=== PATIENT | male | born 2005 | race Caucasian/White ===

== ENCOUNTER 2024-01-28 19:51 | Observation (INO) | payer BC, SELFPAY ==
[2024-01-28 13:45] VITALS: BP 134/75
[2024-01-28] MEDS: OMNIPAQUE 50 ML PO (14:59)
[2024-01-28 15:10] LABS: Urine Albumin Negative (Neg - Trace); Urine Bilirubin Negative (Negative); Urine Character Clear (Clear); Urine Color Yellow; Urine Glucose Negative (Negative); Urine Ketone Negative (Negative); Urine Leukocyte Negative (Negative); Urine Nitrite Negative (Negative); Urine Occult Blood Negative (Negative); Urine Urobilinogen Negative (Neg - 1+)
[2024-01-28 15:12] LABS: % Basophils 0.6 % (0-2); % Eosinophils 0.3 % (0-6); % Immature Granulocytes 0.4 % (0-0.5); % Lymphocytes 10.2 % (20.5-51.1); % Neutrophils 79.5 % (42.2-75.2); Absolute Basophils 0.1 10^3/uL (0-0.2); Absolute Immature Granulocytes 0.1 10^3/uL (0-0.05); Absolute Lymphocytes 1.3 10^3/uL (1.2-3.4); Absolute Monocytes 1.2 10^3/uL (0.1-0.6); Absolute Neutrophils 10.4 10^3/uL (1.4-6.5); Hematocrit 40.2 % (39.0-52.0); Mean Corp Hgb Conc. 34.8 g/dL (33.0-37.0); Mean Corpuscular Hgb 28.6 pg (27.0-31.0); Mean Corpuscular Volume 82.2 fL (80.0-94.0); Mean Platelet Volume 9.8 fL (7.4-10.4); Nucleated Red Blood Cells % 0 % (-); Platelet Count 320 10^3/uL (130-400); Red Blood Cell Count 4.89 10^6/uL (4.70-6.10); Red Cell Dist. Width 12.2 % (11.5-14.5)
[2024-01-28 15:23] LABS: ALT (SGPT) 14 U/L (0-50); AST (SGOT) 20 U/L (17-59); Albumin 4.5 g/dl (3.5-5.0); Alkaline Phosphatase 92 U/L (38-126); Blood Urea Nitrogen 22 mg/dl (9-20); Calcium 10.2 mg/dl (8.4-10.2); Carbon Dioxide 29 mmol/L (22-30); Chloride 98 mmol/L (98-107); Glucose 96 mg/dl (70-99); Potassium 3.9 mmol/L (3.5-5.1); Sodium 136 mmol/L (135-145); Total Bilirubin 0.6 mg/dl (0.2-1.3); Total Protein 7.7 g/dl (6.3-8.2); eGFR > 60.00
[2024-01-28 15:25] LABS: Lipase 36 U/L (23-300)
[2024-01-28 18:32] VITALS: BP 116/74
[2024-01-28] MEDS: ZOSYN 100 IV (18:38)
[2024-01-28] MEDS: NSS 1000 IV ×2 (18:40→21:39)
--- NOTE | 2024-01-28 18:41 | PHANOTE ---
Med Rec Note:
Per pt's mother, she had some dosage of Macrobid left over, Pt took 4 doses since Thursday, last dose this AM.
[2024-01-28] MEDS: TORADOL 15 MG IV (18:59)
[2024-01-28 19:18] VITALS: BP 111/69
--- NOTE | 2024-01-28 19:22 | ED.GENMED ---
History of Present Illness
General
Chief Complaint: Abdominal Pain
Source: patient and family
Exam Limitations: none
Time Seen by Provider: 01/28/24 14:35
Nursing documentation reviewed up to this point in time: agreed with
Travel History
Have you had any contact with someone who has COVID-19?: No
Do you have any symptoms of coronavirus? Fever > 100 degrees, chills, cough, shortness of breath, sore throat, loss of taste or smell, muscle aches, or headache?: No
History of Present Illness
History of Present Illness:
18-year-old male without significant past medical history presenting to the emergency department with initially intermittent right lower quadrant abdominal pain but progressive over the past 2 days or so associated nausea no significant change in
bowel movements. Had a fever throughout the day today. No history of surgeries
Review of Systems
Review of Systems
Allergies reviewed?: Yes
All Other Systems: ROS reviewed and negative except as documented in HPI and ROS
Phy Exam
Physical Exam
Physical Exam:
GENERAL: Alert , in no apparent distress
EYE: pupils equal and reactive
NECK: Supple, no significant adenopathy.
ENT: o/p clr, mmm.
CARDIAC: Regular rate and rhythm .
LUNGS: Clear breath sounds bilaterally, no acute respiratory distress, no wheezes/rales/rhonchi
ABDOMEN: Tenderness throughout the lower abdomen maximal to the right lower quadrant
NEUROLOGICAL: Alert and oriented, no focal neuro deficits
SKIN: Warm and dry, skin intact.
MUSCULOSKELETAL: No edema, well perfused.
PSYCH: Normal and appropriate interaction.
Course
Orders/Labs/Results
Orders:
Orders
01/28/24 14:44
Iohexol [Omnipaque] See Protocol PO NOW STA
01/28/24 14:45
CT Abd/pel W Iv And Oral Contr Urgent
Comment:
Reason For Exam: rlq pain
01/28/24 15:00
Comprehensive Metabolic Panel Urgent
Lipase Urgent
01/28/24 15:01
Complete Blood Count/With Diff Urgent
Urinalysis Reflex To Culture Urgent
Date Specimen was Collected: 01/28/24
Time Specimen was Collected: 14:49
Chlamydia/GC by PCR Urgent
DELMAR Source: Urine
Specimen Description:
Source:: URINE
Date Specimen was Collected: 01/28/24
Time Specimen was Collected: 14:49
01/28/24 18:31
Piperacillin/Tazo 4.5 Gram [Zosyn] 4.5 gram in 100 ml IV NOW
01/28/24 18:37
0.9% Sodium Chloride 1000 ml [Nss] 1,000 ml IV BOLUS
01/28/24 18:43
Ketorolac [Toradol] 15 mg IV NOW STA
Abnormal Lab Results
01/28/24 01/28/24
15:00 15:01
WBC 13.0 H 10^3/uL
(4.8-10.8)
Abs Immat Gran (auto) 0.1 H 10^3/uL
(0-0.05)
Absolute Neuts (auto) 10.4 H 10^3/uL
(1.4-6.5)
Absolute Monos (auto) 1.2 H 10^3/uL
(0.1-0.6)
Neutrophils % 79.5 H %
(42.2-75.2)
Lymphocytes % 10.2 L %
(20.5-51.1)
BUN 22 H mg/dl
(9-20)
01/28/24 15:01
01/28/24 15:00
Vital Signs
Initial and Last Documented VS:
Initial Vital Signs
Temp Pulse Resp BP Pulse Ox
100.3 F 107 18 134/75 99
01/28/24 13:45 01/28/24 13:45 01/28/24 13:45 01/28/24 13:45 01/28/24 13:45
Last Documented Vital Signs
Temp Pulse Resp BP Pulse Ox
102.2 F H 96 16 111/69 99
01/28/24 18:32 01/28/24 19:18 01/28/24 19:18 01/28/24 19:18 01/28/24 19:18
MDM/Problems Addressed
MDM/Problems Addressed:
18-year-old male presenting to the emergency department with concerns of worsening right lower quad abdominal pain. Initially with borderline temperature here slightly elevated heart rate was given fluids white count 13.[address]
scan showing perforated appendicitis. Case discussed with surgery started on antibiotics and otherwise admitted for IR drain tomorrow morning stable throughout ER stay.
*Critical Care Note
Total Time (30-74mins, 75-104mins- exclusive of procedures): Not Applicable
ED Attending Note
-
Portions of this chart may have been created with voice recognition software.� Occasional wrong word or��sound alike� substitutions may have occurred due to the inherent limitations of voice recognition software.
Discharge Plan
Departure
Patient Disposition: Admit
Date of Disposition: 01/28/24
Time of Disposition: 19:23
Admit to: Med/Surg
Admit to doctor: Jan
Presentation/result/management discussed w/ accepting MD/DO: Gen Surgery
Patient with high blood pressure during this ER visit?: No
Condition: Good
Covid-19: Not Applicable
Discharge Problem:
Perforated appendicitis
Prescriptions:
No Action
No Current Medications
0
Referrals:
NONE,* [Family Provider] -
Stand Alone Forms: Back to School
Interventions
Interventions:
*Risk Screen - Suicide Last Done: 01/28/24 13:45
*General Assessment Last Done: 01/28/24 13:45
*Neglect/Abuse Screening Last Done: 01/28/24 13:45
ED- Fall Risk Assessment Last Done: 01/28/24 17:58
*ED COVID-19 Vaccine History Last Done: 01/28/24 13:45
UF-Fyqvwg-Lboadwjmnc Assessment Last Done: 01/28/24 19:19
Discharge Date and Time
Print Language: KAZAKH
--- NOTE | 2024-01-28 20:01 | HPS.HSE ---
Addendum entered and electronically signed by Samuel Montoya MD 01/29/24 11:25:
I saw and examined the patient.
The Scaffold Erector's note was reviewed and I agree with the note.
Comment: Feels about the same today, denies n/v, feels hungry, pain controlled. mild ttp to RLQ on exam. CT w/ esa-appendiceal abscess, plan for IV abx, IR drain, OK for reg diet post procedure
Original Note:
Family Physician
-
Family Physician: * NONE
Chief Complaint
-
abdominal pain
History of Present Illness
This is a very pleasant and otherwise healthy 18 year old male who comes in with his mother due to increasing right abdominal pain over the past week. He has been especially uncomfortable the last two days. He takes no medications on a regular
basis. He denies YEN, CP, SOB, TELLO, n/v/d or dysuria presently but was febrile to 102F on admission with some nausea today. He denied trauma to his abdomen.
Medical History
Past Medical History
Past Medical History: Reports None
Past Surgical History: Reports None
Social History
Tobacco: Non-smoker
Alcohol: None
Drug: None
Personal: Single
Living: With Family
Employment: Not Employed
Family History
Family History: Not pertinent
Allergies / Home Medications
Allergies reflects when Allergies were last updated in [employer].
Home Medications with original date entered in [employer]
Allergy/Medication List:
Allergies
Allergy/AdvReac Type Severity Reaction Status Date / Time
No Known Allergies Allergy Unverified 01/28/24 13:47
Home Medications
No Meds [No Current Medications] 01/28/24
Review of Systems
-
History Source: Patient, Family and Coordinated Provider
A 12 point ROS was completed and negative except as noted: Yes
Constitutional: Reports No Symptoms
EENT: Reports No Symptoms
Respiratory: Reports No Symptoms
Cardiac: Reports No Symptoms
Abdomen/GI: Reports Abdominal Pain and Nausea
: Reports No Symptoms
Musculoskeletal: Reports No Symptoms
Skin: Reports No Symptoms
Neurological: Reports No Symptoms
Endocrine: Reports No Symptoms
Hematologic/Lymphatic: Reports No Symptoms
Psych: Reports No Symptoms
Physical Exam
Vital Signs
Vital Signs
Temp Pulse Resp BP Pulse Ox
102.2 F H 96 16 111/69 99
01/28/24 18:32 01/28/24 19:18 01/28/24 19:18 01/28/24 19:18 01/28/24 19:18
Physical Exam
General: Well Developed, Well Nourished, No Apparent Distress and Comfortable
HEENT: NormoCephalic, Atraumatic and PERRLA
Respiratory: Clear and Non Labored Respirations
Cardiac: Regular Rhythm
Breast: Deferred by me
GI: Soft and Tender
Rectal: Deferred by Provider
Genito-urinary: Clear Urine
Skin: Warm and Dry
Neuro: Awake, Alert and AO x 3
Hematologic/Lymphatic: No Lymphadenopathy
Psych: Calm
Laboratory Results
-
01/28/24 15:01
01/28/24 15:00
Laboratory Results
Total Bilirubin 0.6 mg/dl (0.2-1.3) 01/28/24 15:00
AST 20 U/L (17-59) 01/28/24 15:00
ALT 14 U/L (0-50) 01/28/24 15:00
Alkaline Phosphatase 92 U/L (38-126) 01/28/24 15:00
Lipase 36 U/L (23-300) 01/28/24 15:00
Data Reviewed
-
CT Scan: Report Reviewed by me
Lab Data: Labs Reviewed by me
Impression/Plan
-
IMPRESSION: Acute perforated appendicitis with abscess formation
PLAN: This is a very pleasant and otherwise healthy 18 year old male who comes in with his mother due to increasing right abdominal pain over the past week. He has been especially uncomfortable the last two days. He takes no medications on a
regular basis. He denies YEN, CP, SOB, TELLO, n/v/d or dysuria presently but was febrile to 102F on admission with some nausea today. He denied trauma to his abdomen.
*Acute perforated appendicitis with abscess formation: Zosyn IV q 6H, NS IVF, NPO, Morphine prn pain, antiemetic prn. IR consult for drainage. Trend fever.
*Leukocytosis: Recheck cbc in am.
*DVT prophylaxis: SCDs. OOB.
*Disposition: FC. Dr. Montoya. General surgery service.
[2024-01-28 20:40] VITALS: BP 106/63
[2024-01-28 21:25] VITALS: BP 114/72; BMI 19.8
[2024-01-28 21:28] VITALS: BP 103/63
--- NOTE | 2024-01-28 21:30 | PTCARENOTE ---
Patient received from ED, AAOX3, offers no complaints. Apical regular, afebrile, blood pressure as documented. palpable pulses, no edema. Lungs clear, on room air. Abdomen soft with positive bowel sounds. Denies nausea. Voiding without
difficulty. #20 g in RAC flushed and patent. Plan of care discussed with mother and patient at bedside.
[2024-01-29] VITALS (9 sets, daily range): BP systolic 78–120; BP diastolic 63–74
[2024-01-29] MEDS: ZOSYN 50 IV ×5 (00:19→23:01)
[2024-01-29 06:00] LABS: % Basophils 0.4 % (0-2); % Eosinophils 0.4 % (0-6); % Immature Granulocytes 0.6 % (0-0.5); % Lymphocytes 10.6 % (20.5-51.1); % Monocytes 8.9 % (1.7-9.3); % Neutrophils 79.1 % (42.2-75.2); Absolute Basophils 0.1 10^3/uL (0-0.2); Absolute Eosinophils 0.1 10^3/uL (0-0.7); Absolute Immature Granulocytes 0.1 10^3/uL (0-0.05); Absolute Lymphocytes 1.4 10^3/uL (1.2-3.4); Absolute Monocytes 1.2 10^3/uL (0.1-0.6); Absolute Neutrophils 10.4 10^3/uL (1.4-6.5); Hematocrit 38.6 % (39.0-52.0); Hemoglobin 13.2 g/dL (13.0-18.0); Mean Corp Hgb Conc. 34.2 g/dL (33.0-37.0); Mean Corpuscular Hgb 28.5 pg (27.0-31.0); Mean Corpuscular Volume 83.4 fL (80.0-94.0); Mean Platelet Volume 9.8 fL (7.4-10.4); Nucleated Red Blood Cells % 0 % (-); Platelet Count 305 10^3/uL (130-400); Red Blood Cell Count 4.63 10^6/uL (4.70-6.10); Red Cell Dist. Width 12.2 % (11.5-14.5); White Blood Cell Count 13.1 10^3/uL (4.8-10.8)
--- NOTE | 2024-01-29 14:14 | CM ---
Initial asssessment completed with patient and mother. Patient is a college student in [employer]. He recently returned to the area and lives with his parents and 25 year old sister. They live in a 2 story home with basement, B/B on and 10/06
bath on , 3 steps to enter, no DME or in-home services, was independent and drove REFRIGERATION ENGINEER, Pharmacy is [facility], [address] [place] [address] in [place], no PCP at this time. He aged out of pediatric practice and mother plans on having parents PCP for him. No
appointment scheduled as yet. Discharge Plan of Care: Home with drain. Declined services for drain care. Mother is a nurse and will manage drain.
[2024-01-29] MEDS: NSS 1000 IV (17:10)
[2024-01-29] MEDS: MORPHINE SULFATE 1 MG IV (17:13)
[2024-01-30] MEDS: ZOSYN 50 IV ×4 (05:46→23:00)
[2024-01-30 06:25] LABS: Hematocrit 35.7 % (39.0-52.0); Hemoglobin 12.4 g/dL (13.0-18.0); Mean Corp Hgb Conc. 34.7 g/dL (33.0-37.0); Mean Corpuscular Hgb 28.5 pg (27.0-31.0); Mean Corpuscular Volume 82.1 fL (80.0-94.0); Mean Platelet Volume 9.5 fL (7.4-10.4); Platelet Count 326 10^3/uL (130-400); Red Blood Cell Count 4.35 10^6/uL (4.70-6.10); Red Cell Dist. Width 12.1 % (11.5-14.5); White Blood Cell Count 12.2 10^3/uL (4.8-10.8)
[2024-01-30 06:54] LABS: Blood Urea Nitrogen 17 mg/dl (9-20); Calcium 9.3 mg/dl (8.4-10.2); Carbon Dioxide 28 mmol/L (22-30); Chloride 102 mmol/L (98-107); Estimated Creatinine Clearance > 125 ml/min; Glucose 101 mg/dl (70-99); Potassium 4.3 mmol/L (3.5-5.1); Sodium 134 mmol/L (135-145); eGFR > 60.00
[2024-01-30 07:10] VITALS: BP 105/59
--- NOTE | 2024-01-30 09:57 | W.PN.GS2 ---
Addendum entered and electronically signed by Dieudonne Stern MD 01/30/24 12:58:
I saw and examined the patient.
The PA's note was reviewed and I agree with the note.
Comment:
No overnight events. Denies N/V, tolerating diet with bowel function.
AFVSS, ABD S/ND/appropriately tender near drain, no R/G; NADEEN with 40mL cloudy red output
WBC 12.2 from 13.1
-Continue regular diet
� Continue IV Zosyn
� Continue pain control, switch to p.o.
� OOB/IS
Dispo: continue IV antibiotics for 1 more day and trend WBC; likely DC tomorrow with drain
Original Note:
Today's Communication / Plan
-
Continue IV abx
Assessment / Plan
-
18 yo male presenting with fevers and >1 week of RLQ pain with painful urination with perforated appendicitis on CT and esa-appendiceal abscess. Now PPD #1 IR drain placement with purulent outputs noted.
Low grade fevers, VSS
Leukocytosis present but trending down
Tolerating diet and voiding now without pain
--Continue IV abx
--D/C IVF
--Multimodal analgesics
--Continue regular diet
--Continue drain, cx pending preliminarily with GNR and Gram + cocci
anticipate d/c tomorrow with drain in place if continues to improve, pain well managed, and remains afebrile >24h.
Subjective Data
-
Date of Service: January 30, 2024
Patient seen and examined at bedside with Dr. Stern. OOB/ambulating. Notes pain around the drain site with lying down or sitting. No n/v. Tolerating diet. Voiding well. Passing flatus.
Objective Data
-
Intake and Output
01/29/24 01/30/24 01/31/24
06:59 06:59 06:59
Intake Total 700 / 700 2310 / 2310
Output Total 40 / 40
Balance 700 / 700 2270 / 2270
Intake:
Oral fluids 120 / 120 720 / 720
IV fluids (Total) 480 / 480 1380 / 1380
IV piggybacks 100 / 100 200 / 200
Amount instilled into Drain (
Total)
Right Lower Abdomen Placed in
IR
Output:
Drain Output (Total)
Right Lower Abdomen Placed in
IR
Other:
Number of approximated MODERATE 2 2
amounts of urine
Vital Signs
Temp Pulse Resp BP Pulse Ox
98.6 F 75 17 105/59 100
01/30/24 07:10 01/30/24 07:10 01/30/24 07:10 01/30/24 07:10 01/30/24 07:10
Lab Results
01/30/24 06:08
01/30/24 06:08
Calcium 9.3 mg/dl (8.4-10.2) 01/30/24 06:08
Total Bilirubin 0.6 mg/dl (0.2-1.3) 01/28/24 15:00
AST 20 U/L (17-59) 01/28/24 15:00
ALT 14 U/L (0-50) 01/28/24 15:00
Alkaline Phosphatase 92 U/L (38-126) 01/28/24 15:00
Total Protein 7.7 g/dl (6.3-8.2) 01/28/24 15:00
Albumin 4.5 g/dl (3.5-5.0) 01/28/24 15:00
Physical Exam
-
NAD
ABD soft, significant tenderness around drain site with guarding otherwise NT, ND
IR drain with murky blood tinged fluid
[2024-01-30 15:29] VITALS: BP 107/64
[2024-01-30 23:11] VITALS: BP 104/64
[2024-01-31] MEDS: ZOSYN 50 IV (05:00)
[2024-01-31 07:10] VITALS: BP 118/69
[2024-01-31 07:10] LABS: Hematocrit 36.8 % (39.0-52.0); Hemoglobin 12.1 g/dL (13.0-18.0); Mean Corp Hgb Conc. 32.9 g/dL (33.0-37.0); Mean Corpuscular Hgb 28.1 pg (27.0-31.0); Mean Corpuscular Volume 85.6 fL (80.0-94.0); Mean Platelet Volume 9.9 fL (7.4-10.4); Platelet Count 303 10^3/uL (130-400); Red Cell Dist. Width 12.3 % (11.5-14.5); White Blood Cell Count 7.9 10^3/uL (4.8-10.8)
--- NOTE | 2024-01-31 09:39 | W.PN.GS2 ---
Addendum entered and electronically signed by Dieudonne Stern MD 01/31/24 10:26:
I saw and examined the patient.
The CERTIFIED DRIVER EXAMINER's note was reviewed and I agree with the note.
Comment:
No overnight events. Denies N/V, tolerating diet with bowel function.
AFVSS, ABD S/ND/appropriately tender near drain, no R/G; NADEEN with 25mL cloudy red output
WBC 7.9 from 12.2
-Continue regular diet
� Continue IV Zosyn; switched to Augmentin on discharge
� Continue pain control, switch to p.o.
� OOB/IS
Dispo: Okay for discharge today with drain; will need VNA and course of p.o. antibiotics; follow-up with general surgery in 1 to 2 weeks
Original Note:
Today's Communication / Plan
-
Discharge to home
Assessment / Plan
-
18 yo male presenting with fevers and >1 week of RLQ pain with painful urination with perforated appendicitis on CT and esa-appendiceal abscess. Now PPD #2 IR drain placement with purulent outputs noted.
AFVSS
Leukocytosis resolved
Tolerating diet
--Continue abx
--Multimodal analgesics
--Continue regular diet
--CM consulted for VNA
--Continue drain, cx pending preliminarily with GNR and Gram + cocci, will follow final cx results as OP
Discharge planning
Subjective Data
-
Date of Service: January 31, 2024
Patient seen and examined at bedside with Dr. Stern. Ambulating in room. Denies n/v. Tolerating diet, had pizza last night. +Flatus/BM. Pain improving, pad extractor tender around drain.
Objective Data
-
Intake and Output
01/30/24 01/31/24 02/01/24
06:59 06:59 06:59
Intake Total 2310 / 2310 936 / 936
Output Total
Balance 2270 / 2270 911 / 911
Intake:
Oral fluids 720 / 720 591 / 591
IV fluids (Total) 1380 / 1380 240 / 240
IV piggybacks 200 / 200 100 / 100
Amount instilled into Drain (
Total)
Right Lower Abdomen Placed in
IR
Output:
Drain Output (Total)
Right Lower Abdomen Placed in
IR
Other:
Number of approximated MODERATE 2 1
amounts of urine
Vital Signs
Temp Pulse Resp BP Pulse Ox
98.4 F 76 16 118/69 96
01/31/24 07:10 01/31/24 07:10 01/31/24 07:10 01/31/24 07:10 01/31/24 07:10
Lab Results
01/31/24 05:58
01/30/24 06:08
Calcium 9.3 mg/dl (8.4-10.2) 01/30/24 06:08
Total Bilirubin 0.6 mg/dl (0.2-1.3) 01/28/24 15:00
AST 20 U/L (17-59) 01/28/24 15:00
ALT 14 U/L (0-50) 01/28/24 15:00
Alkaline Phosphatase 92 U/L (38-126) 01/28/24 15:00
Total Protein 7.7 g/dl (6.3-8.2) 01/28/24 15:00
Albumin 4.5 g/dl (3.5-5.0) 01/28/24 15:00
Physical Exam
-
NAD
ABD soft, expected tenderness around drain site, otherwise NT, ND
IR drain with cloudy blood tinged fluid
--- NOTE | 2024-01-31 10:50 | CM ---
Patient has been medically cleared for discharge to home with no additional skilled services. Patient does have a drain in place. Mother is a nurse and will care for drain. Declined VN services. Patient was transported home by family.
--- NOTE | 2024-01-31 11:14 | W.DCSUMMARY ---
Discharge Summary
Discharge Data
Date of Admission: 01/28/24
Date of Discharge: 01/31/24
-
Pending Results: No
Hospital Course
18 yo male who presented with >1week history of RLQ pain with discomfort urinating. He presented after developing fevers with worsening symtpoms. He was noted to have perforated appendicitis on CT and esa-appendiceal abscess noted. He was taken to
IR for drain placement with successful drainage of abscess. Leukocytosis present on admission resolved prior to discharge with IV abx and abscess drainage. He was afebrile for >24 hours upon discharge as well. IR drain left in place upon discharge
and antibiotics transitioned to PO Augmentin. Drain care and teaching preformed prior to discharge with prescription sent for flushes to pharmacy. He was discharged to home with outpatient follow up planned to discuss timing of drain removal as well
as interval appendectomy. Will follow for final culture results from drainage placement as an outpatient.
Discharge Plan
-
Patient Disposition: Home (Routine Discharge)
Discharge Diagnosis/Procedures: Perforated appendicitis with drain placement for abscess
Condition: Good
Diet: As tolerated and Regular
Additional Diets: Eat small light meals if you have abdominal bloating
Activity: As tolerated
Bathing Restrictions: OK to Shower
Wound Care: Ok to shower but avoid bath tubs, swimming etc. Keep your drain covered with a dry gauze dressing and change daily and as needed. Forward flush your drain every day with 5ml of sterile saline.
Activity Restrictions/Additional Instructions:
Call your surgeon if you have a fever >100.5 or worsening abdominal pain
Referrals:
Samuel Montoya MD [Active] - in one week
Prescriptions:
New
acetaminophen [acetaminophen] 325 mg tablet
650 mg PO Q4HPRN PRN (Reason: mild pain) Qty: 1 0RF
ibuprofen 200 mg tablet
400 - 600 mg PO Q6HPRN PRN (Reason: moderate pain) Qty: 1 0RF
amoxicillin-pot clavulanate 875-125 mg tablet
1 tab PO Q12 Qty: 18 0RF
sodium chloride 0.9 % (flush) [Normal Saline Flush] Syringe
5 ml IV DAILY Qty: 50 0RF
Rx Instructions:
Daily flush of drain
Discharge Orders:
Discharge Patient (As Directed); Ordered 01/31/24
Ordered By: Purvi Chapman
Discharge Date and Time
Discharge Date/Time: 01/31/24 10:45
Print Language: GREEK
== END 2024-01-31 10:45 | disposition home or self-care (01) ==
LOC: 2 SOUTH 19:51
PROVIDERS: Physician Assistant; Registered Nurse; ADMITTING PHYSICIAN Surgery; EMERGENCY PHYSICIAN Emergency Medicine
DX: K35.33 Acute appendicitis with perforation, localized peritonitis, and gangrene, with abscess (principal)
CPT/HCPCS: 49406; 74177; 80048; 80053; 81003; 83690; 85025; 85027; 87070; 87077; 87205; 87491; 87591; 96365; 96375; 99152; 99285; G0378; Q9967

== ENCOUNTER → 2024-02-08 13:39 | Outpatient (REF) | payer BC, SELFPAY ==
[2024-02-08 13:45] VITALS: BP 120/74; BP_SYST 62
== END ==
LOC: RADI 13:39
PROVIDERS: ATTENDING PHYSICIAN Surgery
DX: K35.33 Acute appendicitis with perforation, localized peritonitis, and gangrene, with abscess (principal)
CPT/HCPCS: 49424; 76080

== ENCOUNTER → 2024-03-10 09:05 | Outpatient (REF) | payer BC, SELFPAY ==
[2024-03-10 09:25] VITALS: BP_SYST 80
== END ==
LOC: RADI 09:05
PROVIDERS: ATTENDING PHYSICIAN Surgery
DX: K35.33 Acute appendicitis with perforation, localized peritonitis, and gangrene, with abscess (principal)
CPT/HCPCS: 49424; 76080

== ENCOUNTER 2024-03-18 06:19 | Day surgery (SDC) | payer BC, SELFPAY ==
[2024-03-18 12:40] VITALS: BMI 19.2
[2024-03-18 12:41] VITALS: BP 127/74; BMI 19.2
[2024-03-18] MEDS: TYLENOL 1000 MG PO (12:44)
[2024-03-18] MEDS: NORMOSOL-R 1000 IV (12:59)
--- NOTE | 2024-03-18 15:24 | W.IMMPOSTOP ---
Surgical Immed Post Op Note
-
Primary Surgeon: Jan
Assisting: Debbieler
Pre-op Diagnosis: History of perforated acute appendicitis
Post-op Diagnosis: Same
Procedure Performed: Laparoscopic appendectomy
Anesthesia Type: GETA
Specimen / Cultures: Appendix
Estimated Blood Loss: 20cc
Complications: None immediate
Operative Findings: Severely scarred thickened appendix and surrounding tissue densely adherent to pelvic side wall, peritoneum taken down around adherent cecum/appendix/abscess complex; terminal ileum identified and protected; drain removed; base
of appendix taken with 45mm estrada load endo ROBINSON stapler, pelvis and right lower quadrant irrigated thoroughly; no pus, no stool visualized.
--- NOTE | 2024-03-18 15:28 | OR.RPT ---
Operative Report
Operative Report
Primary Surgeon: Jan
Assisting: Ronny APODACA
Pre-op Diagnosis: History of perforated acute appendicitis
Post-op Diagnosis: Same
Procedure Performed: Laparoscopic appendectomy
Anesthesia Type: GETA
Specimen / Cultures: Appendix
Estimated Blood Loss: 20cc
Complications: None immediate
Operative Findings: Severely scarred thickened appendix and surrounding tissue densely adherent to pelvic side wall, peritoneum taken down around adherent cecum/appendix/abscess complex; terminal ileum identified and protected; drain removed; base
of appendix taken with 45mm estrada load endo ROBINSON stapler, pelvis and right lower quadrant irrigated thoroughly; no pus, no stool visualized.
Date of Surgery: 03/18/24
Indications: This 18M developed acute appendicitis with perforation and abscess. Initially it was managed with a drain and antibiotics. Laparoscopic appendectomy was elected.
Description of procedure: The patient was placed on the operating table in the supine position. General anesthesia was induced. A time-out was completed verifying correct patient, procedure, site, positioning, and special equipment prior to
beginning this procedure. An orogastric tube was placed. The abdomen was prepped and draped in the usual sterile fashion. A stab incision was made in left upper quadrant and the Veress needle was inserted. Proper position was confirmed by aspiration
and saline meniscus test. The abdomen was insufflated with carbon dioxide to a pressure of 12 mmHg. The patient tolerated insufflation well.
A 5mm optical trocar was then inserted at the left lower quadrant. The laparoscope was inserted and the abdomen inspected. No injuries from initial trocar placement or Veress needle insertion were noted. Additional trocars were then inserted in the
following locations: a 12-mm trocar at the umbilicus and a 5-mm trocar midline in the suprapubic space. The abdomen was inspected and no abnormalities were found. The table was placed in the Trendelenburg position with the right side up. The cecum
was densely adherent to the pelvic sidewall in the groin area. Several attempts were made to bluntly sweep it down, these were unsuccessful. The peritoneum was then incised with the ligasure and the cecum and peritoneum peeled down out of the
pelvis. The right colon was mobilized along the lateral avascular plane with the ligasure. The terminal ileum was identified and protected. The taenia were traced from the right colon down to the cecum and the confluence was identified. A window was
made in the appendiceal mesentery with the maryland dissector and the base of the appendix was taken with a laparoscopic linear cutting stapler with a 45mm estrada load. The stapled edge of the appendix was gently grasped and retracted in a caudad
direction. This maneuver exposed the appendiceal blood supply which was controlled with the Ligasure device. The appendix was placed in an endoscopic retrieval bag, removed through the umbilical port, and passed off the table as a specimen.
We then turned our attention to the staple line, which was noted to be hemostatic. The pelvis and right lower quadrant were thoroughly irrigated with sterila saline. The drain was removed. The umbilical trocar site was closed at the fascial level
laparoscopically with 2-0 PDS under direct vision. Secondary trocars were removed under direct vision and noted to be hemostatic. The laparoscope was withdrawn and the abdomen was allowed to collapse. The skin was closed with subcuticular sutures of
4-0 monocryl and topical skin adhesive. The orogastric tube was removed.
The patient tolerated the procedure well and was taken to the postanesthesia care unit in stable condition.
The assistance of Ronny APODACA was required due to the complexity of the procedure. During the procedure he assisted with retraction, resection, and closure of the wound.
[2024-03-18 15:30] VITALS: BP 121/70; BP 127/74
[2024-03-18 15:45] VITALS: BP 115/64
[2024-03-18 16:00] VITALS: BP 113/62
[2024-03-18 16:15] VITALS: BP 113/64
[2024-03-18 16:33] VITALS: BP 114/63
== END 2024-03-18 16:40 | disposition home or self-care (01) ==
LOC: SDS 06:19
PROVIDERS: ATTENDING PHYSICIAN Surgery
DX: K35.33 Acute appendicitis with perforation, localized peritonitis, and gangrene, with abscess (principal)
CPT/HCPCS: 44970; 88304

== ENCOUNTER → 2025-03-07 13:57 | Outpatient (REF) | payer BC, SELFPAY | LOC: PAVMRI 13:57 | PROVIDERS: ATTENDING PHYSICIAN Family Medicine | DX: E23.0 Hypopituitarism (principal) | CPT/HCPCS: 70553; A9575 ==